=== PATIENT | female | born 1990 | race Caucasian/White ===

== ENCOUNTER 2018-10-11 11:50 | Inpatient (IN) | payer BC ==
[2018-10-11] MEDS ORDERED: Misoprostol TAB* 100 MCG PO ONE (12:24)
--- NOTE | 2018-10-11 12:34 | HP ---
General Information - Reason for Visit IUP at 40-10/29 here for postdates ripening/induction - General Information Maternal Age: 27 Grav: 1 Para: 0 SAB: 0 IEA: 0 Estimated Due Date: 10/05/18 Determined By: LMP Gestational Age in Weeks/Days: 40-67 Maternal Blood Type and Rh: O Positive - Results this Serology/RPR Result: Non-Reactive Rubella Result: Immune HBsAg Result: Negative HIV Result: Negative GBS Culture Result: Negative Past Medical History Delivery History: See Records Delivery History Comment: Primip Pertinent Past Medical History: Non-Contributory Pertinent Past Surgical History: None Pertinent Family History: See Records Family History Comment: MGM: ND. Takotsubo cardiomyopathy - Antepartal Records Antepartal Records: Reviewed, Uncomplicated Review of Systems Constitutional: Comfortable CV Complaint: No Respiratory: Shortness of Breath: No Gastrointestinal: No Nausea/Vomiting Genitourinary: No Dysuria, No Bleeding, No Leaking Fluid Musculoskeletal: No Complaint, No Epigastric Pain Neurological: No Headache, No Visual Changes Movement: Normal Exam Allergies/Adverse Reactions: Allergies MS Penicillins [Penicillins] Allergy (Verified 09/20/18 15:29) Rash BP 137/82 Repeat 125/80 HR 88 T 98.5 RR 20 SpO2 98% on RA - Measurements Height: 5 ft 4 in Weight: 211 lb Body Mass Index (BMI): 36.2 Pre- Weight: 175 lb - Exam Breast: Breast Exam Deferred CVA: No CVA Tenderness Extremities: No Edema Heart: Normal Rhythm/Heart Sounds HEENT: No Significant Findings Lungs: Clear Bilaterally Rectal: Rectal Exam Deferred Reflexes: DTR 2+ Thyroid: No Thyromegaly - Abdominal Exam Abdomen Exam: Non-Tender, Fundal Height Consistent with Dates - Ultrasound/Biophysical Profile Ultrasound Status: Not Done Targeted Exam Findings See L&D Outpatient Visit Provider Note for Findings: N/A Estimated Weight: EFW 8lbs by Alisia Cervical Exam: Fingertip Effacement: 50% Station: -2 Presenting Part: Vertex Membrane Status: Intact Sterile Speculum Exam: Not done Bleeding/Discharge: None EFM Findings - External Monitor Findings Baseline Heart Rate: 135 External Monitor Findings: Accelerations Present, No Pattern of Variable or Late Decelerations, Variability Moderate, Baseline Stable External Monitor Findings Comment: No evidence of metabolic acidemia Contractions: Irregular, Mild Assessment/Plan - Assessment IUP at 40-6/7 here for postdates ripening/induction No evidence of metabolic acidemia - Obstetrical Risk Factors Obstetrical Risk Factors: Post-Dates - Plan Plan: Cervical Ripening Plan Comment: Counseled for trial of Cervidil PV vs. Oral or vaginal Misoprostol. PARQ both. At this time pt consents to trial oral misoprostol. Will monitor per protocol and revisit in 4 hours, sooner PRN. Dr. Barragan aware of pt presence and condition. Agrees with plan - Date/Time of Admission Date of Admission: 10/11/18 Time of Admission: 11:51
--- NOTE | 2018-10-11 16:53 | PN ---
Progress Note - Progress Note Date of Service: 10/11/18 Note: S: Pt has been up walking. Reports some mild tightening but denies painful UCs. O: BP 122/80 HR 85 FHT 130bpm. Moderate variability. +Accels. No decels UCs q 2-3, mild VE: 1cm/50%/vtx -2 A: IUP at 40-6/7 here for cervical ripening/IOL No evidence of metabolic acidemia P: Enc pt to move around, have some dinner. Plan Cervidil placement around 1900 with PRN order for therapeutic rest overnight. Pt agrees
[2018-10-11] MEDS ORDERED: Dinoprostone* 10 MG VAG.SUPP VAGINAL ONE (18:45)
[2018-10-11] MEDS ORDERED: Nalbuphine* 10 MG/ML 1 ML VIAL IM ONE (19:15)
--- NOTE | 2018-10-11 19:15 | PN ---
Progress Note - Progress Note Date of Service: 10/11/18 Note: S: Pt able to eat some dinner. Open to Cervidil placement O: BP 139/82 HR 63 FHT 135bpm. Moderate variability. +Accels. No decels UCs q 4-7 min. Mild VE: Unchanged. Cervidil placed. Pt tolerated well A: IUP at 40-6/7 here for postdates ripening/IOL No evidence of metabolic acidemia P: Cervidil placed at 1905. Plan removal in 12 hours or sooner PRN onset active labor, tachysystole, intolerance. PRN order for therapeutic rest provided.
[2018-10-11] MEDS ORDERED: Promethazine INJ(RESTRICTED)* 25 MG/ML 1 ML VIAL IM ONE (19:16)
[2018-10-12 07:34] LABS: ABS Basophils 0.1 10^3/ul (0-0.2); ABS Lymphocytes 1.7 10^3/ul (1.0-4.8); ABS Monocytes 0.3 10^3/ul (0-0.8); ABS Neutrophils 11.8 10^3/ul (1.5-7.7); Hematocrit 38 % (35-47); Hemoglobin 12.4 g/dL (12.0-16.0); Lymphocyte % 12.3 %; Mean Corpuscular HGB Conc 33 g/dL (31-36); Mean Corpuscular Hemoglobin 29 pg (27-31); Mean Corpuscular Volume 88 fL (80-97); Mean Platelet Volume 8.7 fL (7.4-10.4); Platelet Count 300 10^3/uL (150-450); Red Blood Count 4.26 10^6 /uL (3.70-4.87); Red Cell Distribution Width 15 % (10.5-15); White Blood Count 13.8 10^3/uL (3.5-10.8)
[2018-10-12] MEDS ORDERED: OBEPIDURAL* 250 ML EPIDURAL ONE (08:23)
[2018-10-12] MEDS ORDERED: Phenylephrine 40 MCG/ML SYRINGE IV PUSH PRN ×2 (09:17)
[2018-10-12] MEDS ORDERED: Famotidine TAB* 20 MG PO PRN (09:17)
[2018-10-12] MEDS ORDERED: Lactated Ringers 1000 ML Bag* 1,000 ML IV ONE (09:17)
[2018-10-12] MEDS ORDERED: Sodium Citrate/Citric Acid* 15 ML UDC PO PRN (09:17)
[2018-10-12] MEDS ORDERED: OBEPIDURAL* 250 ML EPIDURAL SCH (10:00)
[2018-10-12] MEDS ORDERED: Lactated Ringers 1000 ML Bag* 1,000 ML IV SCH (10:00)
--- NOTE | 2018-10-12 12:45 | PN ---
Progress Note - Progress Note Date of Service: 10/12/18 Note: Late note for 0815: S: Patient uncomfortable, desires epidural O: VE 3/90/0 VSS, afebrile FHT 135, Cat 1 Ucs q 1.5-4, some coupling intact A: IUP in labor P: anesthesia paged. Follow up @ 1240: S: Patient very comfortable with epidural, had a nap, now desires VE O: VE 6/90/0 UCs q 2-4 min FHT 135, Cat 1 VSS, afebrile A: IUP @ 41 weeks gestation in active labor No sign metabolic acidemia P: Continue to encourage position changes in bed. Anticipate SVB
--- NOTE | 2018-10-12 16:14 | PN ---
Progress Note - Progress Note Date of Service: 10/12/18 Note: S: Patient still very comfortable but feeling more low pelvic pressure. O: VE 8cm/100/0 FHT 135 Cat 1 UCs q 2-4 min VSS, afebrile SROM @ 0946, continued leaking clear/blood tinged fluid A: Active labor P: Encouraged [id number] position changes with peanut ball. Anticipate SVB.
[2018-10-12] MEDS ORDERED: Bupivacaine 0.25% SDV PF* 10 ML VIAL INJ ONE (18:06)
--- NOTE | 2018-10-12 18:07 | PN ---
Progress Note - Progress Note Date of Service: 10/12/18 Note: S: Patient feeling more low pelvic pressure, especially with contractions. She also reports right hip pain. O: VE unchanged FHT Cat 1 UCs q 4-5 min VSS A: IUP in active labor P: Anesthesia paged for bolus. Continue position changes to facilitate baby's descent. PARQ discussion pitocin for increased frequency and strength of contractions; patients in agreement.
[2018-10-12] MEDS ORDERED: Oxytocin in LR* 20 UNITS/1,000 ML BAG IVPB SCH (19:00)
--- NOTE | 2018-10-12 23:31 | PN ---
Progress Note - Progress Note Date of Service: 10/12/18 Note: S: Patient still comfortable after re-bolus though does feel more low pelvic and abdominal pressure with contractions. O: VE ant lip/100/+1 FHT 130, +accels, no decels, mod nicole UCs Q 2-4 min Pit @ 18 VSS, afebrile A: IUP in active labor No evidence acidemia P: Continue position changes, anticipate SVB.
[2018-10-13] MEDS ORDERED: OBEPIDURAL* 250 ML EPIDURAL ONE (02:55)
[2018-10-13] MEDS ORDERED: OXYTOCIN* 10 UNITS/ML 1 ML VIAL ONE (03:25)
[2018-10-13] MEDS ORDERED: Ondansetron INJ* 2 MG/ML VIAL ONE (03:25)
[2018-10-13] MEDS ORDERED: Ketorolac INJ* 30 MG/ML 1 ML VIAL ONE (03:25)
[2018-10-13] MEDS ORDERED: Lidocaine 2% PF* 10 ML AMP ONE ×2 (03:25→04:21)
[2018-10-13] MEDS ORDERED: Gentamicin ADULT (*) 40 MG/ML VIAL (2 ML VIAL = 80 MG) IVPB ONE (03:50)
[2018-10-13] MEDS ORDERED: Clindamycin 900 MG/D5W BAG(*) 900 MG/50 ML BAG IVPB ONE ×2 (03:52→03:55)
--- NOTE | 2018-10-13 03:56 | PN ---
Progress Note - Progress Note Date of Service: 10/13/18 Note: 0215: Minimal change in station with continued pushing efforts, caput increasing and patient becoming tired. Consult with Dr Cesar by phone to consider whether assisted vaginal delivery possible. Plan to stop pitocin and re -bolus epidural as Dr Dawson called in for new bag of epidural med. Consider whether position changes and rest may allow patient to continue pushing. After approx 15 minutes rest, patient prefers to opt for CS; Dr Cesar advised and on his way to unit.
[2018-10-13] MEDS ORDERED: Gentamicin ADULT (*) 100 MG in NS 0.9% 100 ML* 100 ML IVPB ONE (04:30)
[2018-10-13] MEDS ORDERED: fentaNYL* 50 MCG/ML 2 ML VIAL (100 MCG VIAL) ONE (04:42)
[2018-10-13] MEDS ORDERED: Midazolam* 1 MG/ML 2 ML VIAL (2 MG) ONE (04:54)
[2018-10-13] MEDS ORDERED: Morphine PF AMP (0.5MG/ML)* 5 MG/10 ML AMP ONE (05:08)
[2018-10-13] MEDS ORDERED: Acetaminophen IV 1GM/100ML * 1,000 MG/100 ML VIAL IVPB ONE (05:18)
[2018-10-13] MEDS ORDERED: oxyCODONE TAB* 5 MG TAB PO PRN (05:18)
[2018-10-13] MEDS ORDERED: DiMENhydriNATE IV* 50 MG/ML VIAL IV PUSH PRN (05:18)
[2018-10-13] MEDS ORDERED: HYDROmorphone INJ1* 1 MG/ML SYRINGE IV PRN (05:18)
[2018-10-13] MEDS ORDERED: Naloxone* 0.4 MG/ML 1 ML VIAL IV PRN ×2 (05:18→05:19)
[2018-10-13] MEDS ORDERED: oxyCODONE/Acetamin 5/325 MG* TAB PO PRN ×2 (05:19→21:13)
[2018-10-13] MEDS ORDERED: Nalbuphine* 10 MG/ML 1 ML VIAL IV PRN (05:19)
[2018-10-13] MEDS ORDERED: Ondansetron INJ* 2 MG/ML VIAL IV PRN (05:19)
[2018-10-13] MEDS ORDERED: Propofol* 10 MG/ML 20 ML BTL ONE (05:30)
[2018-10-13] MEDS ORDERED: Glycerin ADULT SUPP PR PRN (05:36)
[2018-10-13] MEDS ORDERED: Witch Hazel PAD* JAR TOPICAL PRN (05:36)
[2018-10-13] MEDS ORDERED: Dibucaine 1% 28.35 GM TUBE PR PRN (05:36)
[2018-10-13] MEDS ORDERED: Acetaminophen TAB* 325 MG PO PRN (05:36)
[2018-10-13] MEDS ORDERED: Lactated Ringers 1000 ML Bag* 1,000 ML IV SCH (06:00)
[2018-10-13] MEDS ORDERED: HYDROmorphone INJ* 0.5 MG/0.5 ML SYRINGE ONE (06:26)
[2018-10-13] MEDS ORDERED: HYDROmorphone INJ* 0.5 MG/0.5 ML SYRINGE IV PRN (06:29)
[2018-10-13] MEDS: Simethicone TAB* 80 MG TAB.CHEW PO SCH ×4 (09:24→21:24)
[2018-10-13] MEDS: Docusate CAP* 100 MG PO SCH ×3 (10:21→21:24)
[2018-10-13] MEDS: Ketorolac INJ* 30 MG/ML 1 ML VIAL IV SCH ×2 (11:11→17:36)
[2018-10-13] MEDS ORDERED: Zolpidem TAB* 5 MG PO PRN (21:13)
[2018-10-14] MEDS: Ketorolac INJ* 30 MG/ML 1 ML VIAL IV SCH ×2 (00:41→08:14)
[2018-10-14 08:11] LABS: Hematocrit 28 % (35-47); Hemoglobin 9.2 g/dL (12.0-16.0); Mean Corpuscular HGB Conc 33 g/dL (31-36); Mean Corpuscular Hemoglobin 29 pg (27-31); Mean Corpuscular Volume 89 fL (80-97); Mean Platelet Volume 8.4 fL (7.4-10.4); Platelet Count 242 10^3/uL (150-450); Red Blood Count 3.17 10^6 /uL (3.70-4.87); Red Cell Distribution Width 16 % (10.5-15); White Blood Count 14.8 10^3/uL (3.5-10.8)
[2018-10-14] MEDS: Simethicone TAB* 80 MG TAB.CHEW PO SCH ×4 (08:14→19:47)
[2018-10-14] MEDS: Docusate CAP* 100 MG PO SCH ×3 (08:14→19:47)
[2018-10-14 09:03] LABS: ABS Neutrophils 9.8 10^3/ul (1.5-7.7)
[2018-10-14 09:04] LABS: ABS Eosinophils 0.3 10^3/ul (0-0.6)
[2018-10-14] MEDS: Ferrous Gluconate TAB* 324 MG TAB PO SCH ×2 (09:23→19:47)
--- NOTE | 2018-10-14 12:04 | OP ---
OPERATIVE REPORT: DATE OF OPERATION: 10/13/18 DATE OF : 89 SURGEON: Campos Cesar MD CELL RELINER: Black Giraldo CNM ANESTHESIA: Epidural. PRE-OP DIAGNOSIS: at term with arrest of descent in a second stage of labor. POST-OP DIAGNOSIS: at term with arrest of descent in a second stage of labor. OPERATIVE PROCEDURE: Primary low transverse section. ESTIMATED BLOOD LOSS: 700 cc. SPECIMENS TO PATHOLOGY: Cord blood. FLUIDS: She received 1600 cc of IV crystalloid fluid. URINE OUTPUT: 200 cc of clear urine. FINDINGS: Delivery of a male infant with weight of 8 pounds 12 ounces with Apgars of 9 and 9. The u terus, adnexa, bowel, bladder, fallopian tubes, and ovaries were all within normal limits. The place nta was grossly intact with a 3-vessel cord noted and there were no complications. DESCRIPTION OF PROCEDURE: The patient was taken to the operating room, where she was identified. [facility] was placed on the operating table where an epidural anesthetic was obtained without difficulty. e was then placed in the supine position with a leftward tilt, prepped and draped in a normal sterile fashion. A Pfannenstiel skin incision was then made with a knife and carried through to the underly ing layer of fascia. The fascia was then nicked in the midline and extended laterally with curved Ma yo scissors. The fascia was then grasped superiorly and inferiorly with Jocelynn clamps and dissected off sharply from the rectus muscle. The rectus muscle was in the midline bluntly. The per itoneum was identified, grasped with pickups, and entered sharply with Metzenbaum scissors and extend ed superiorly and inferiorly sharply. A bladder blade was inserted into the patient's abdomen and bl adder flap was created using Metzenbaum scissors, over which the bladder blade was then reinserted. A low transverse uterine incision was made with a knife, extended laterally with bandage scissors. T he 's head was then grasped and delivered atraumatically using vacuum assistance. The rest of the infant's body was then delivered. The cord was clamped and cut. The was handed off to [facility] tub attendant. Cord bloods were obtained. The placenta was removed manually. The uterus was t hen exteriorized and cleared of all clot and debris using moist laparotomy sponges. The uterine inci tierney was then closed using 0 Polysorb suture in a running locked fashion with a second imbricating la juan a of 0 Polysorb suture with good hemostasis noted. At this point, the uterus was returned to the p atient's abdomen. The gutters were then cleared of all clot and debris using moist laparotomy sponge s. All the sponges and instruments were removed from the patient's abdomen. The peritoneum was then closed using 3-0 Polysorb suture in a running fashion. The fascia was closed using 0 Polysorb sutur e in a running fashion and the skin was closed with 4-0 Monocryl subcuticular stitch. The patient to lerated the procedure well. Sponge, lap and needle counts were correct x2. She was then transferred to the recovery room area in stable condition. [id number]/[facility] #: [id number]
[2018-10-14] MEDS: Ibuprofen TAB* 600 MG PO PRN ×2 (14:10→19:47)
[2018-10-14] MEDS: oxyCODONE/Acetamin 5/325 MG* TAB PO PRN (21:46)
[2018-10-15] MEDS: Ibuprofen TAB* 600 MG PO PRN ×3 (02:26→14:00)
[2018-10-15] MEDS: oxyCODONE/Acetamin 5/325 MG* TAB PO PRN ×2 (05:06→14:01)
[2018-10-15] MEDS: Ferrous Gluconate TAB* 324 MG TAB PO SCH (08:21)
[2018-10-15] MEDS: Docusate CAP* 100 MG PO SCH ×2 (08:21→14:00)
[2018-10-15] MEDS: Simethicone TAB* 80 MG TAB.CHEW PO SCH ×2 (08:22→14:00)
[2018-10-15 09:44] VITALS: BP 130/79
--- NOTE | 2018-10-15 11:15 | PTEDU ---
Patient Name: VARGHESE ORTIZ VARGHESE ORTIZ selected video: Never Ever Shake a Baby to view on 10/15/2018 at 11:14:17 AM from [facility] [id number]
--- NOTE | 2018-10-15 11:24 | PTEDU ---
Patient Name: VARGHESE ORTIZ VARGHESE ORTIZ selected video: BBOB: Bonding Through Massage to view on 10/15/2018 at 11:23:49 AM [id number]
== END 2018-10-15 15:17 | disposition home or self-care (01) | DRG 540 ==
LOC: MCHOBOUT 11:50 → MCHOB 11:51
PROVIDERS: ADMIT Midwife; ATTEND Obstetrics & Gynecology
PROC: 10D00Z1 Extraction of Products of Conception, Low, Open Approach (ICD-10-PCS; principal; 2018-10-11)
PROC: 3E0P7VZ Introduction of Hormone into Female Reproductive, Via Natural or Artificial Opening (ICD-10-PCS; 2018-10-11)
PROC: 10E0XZZ Delivery of Products of Conception, External Approach (ICD-10-PCS; 2018-10-11)
PROC: 4A1HXCZ Monitoring of Products of Conception, Cardiac Rate, External Approach (ICD-10-PCS; 2018-10-11)
PROC: 3E033VJ Introduction of Other Hormone into Peripheral Vein, Percutaneous Approach (ICD-10-PCS; 2018-10-11)
DX: O48.0 Post-term pregnancy (principal); Z3A.40 40 weeks gestation of pregnancy; Z37.0 Single live birth; Z88.0 Allergy status to penicillin; O62.1 Secondary uterine inertia; O90.81 Anemia of the puerperium
CPT/HCPCS: 36415; 85025; 86850; 86900; 86901; A9270-GY; J1170; J1580; J1885; J2001; J2250; J2300; J2405; J2550; J2590; J2704; J3010; J3490; S0191

== ENCOUNTER 2019-05-18 09:21 | Emergency (ER) | payer BC ==
[2019-05-18 09:32] VITALS: BP 132/83
[2019-05-18] MEDS ORDERED: Fluorescein Sodium TOPICAL* 1 MG TEST STRIP OPHTHALMIC ONE (09:33)
[2019-05-18] MEDS ORDERED: Polymyx/Trimethoprim OPTH* 10 ML BTL RIGHT EYE ONE (09:41)
--- NOTE | 2019-05-18 09:45 | UC ---
Eye Complaint HPI - HPI Summary HPI Summary: Patient is a 28-year-old female that injured her right eye yesterday when she inadvertently bumped into [facility] bracket. She has some mild right eye sensitivity to light as well as mild pain and redness. She has never injured her right eye before. - History of Current Complaint Chief Complaint: UCEye Stated Complaint: EYE IRRITATION Hx Obtained From: Patient Hx Last Menstrual Period: currently Onset/Duration: Sudden Onset, Lasting Hours Timing: Constant Severity Initially: Mild Severity Currently: Mild Pain Intensity: 3 Pain Scale Used: 0-10 Numeric Location of Injury: Conjunctiva Character: Foreign Body Sensation Aggravating Factor(s): Light Alleviating Factor(s): Darkness Associated Signs And Symptoms: Positive: Drainage (Clear) Related History: Trauma Eyes: 1 - fluorescein uptake - Allergies/Home Medications Allergies/Adverse Reactions: Allergies Allergy/AdvReac Type Severity Reaction Status Date / Time Penicillins Allergy Unknown Rash Verified 05/18/19 09:32 PMH/Surg Hx/FS Hx/Imm Hx Previously Healthy: Yes - Surgical History Surgical History: Yes Surgery Procedure, Year, and Place: - Family History Known Family History: Positive: Non-Contributory - Social History Alcohol Use: Weekly Substance Use Type: None Smoking Status (MU): Never Smoked Tobacco - Immunization History Most Recent Influenza Vaccination: 2018 Most Recent Pneumonia Vaccination: na Review of Systems All Other Systems Reviewed And Are Negative: Yes Constitutional: Positive: Negative Eyes: Positive: Negative, Eye Redness, Photophobia ENT: Positive: Negative Respiratory: Positive: Negative Cardiovascular: Positive: Negative Gastrointestinal: Positive: Negative Genitourinary: Positive: Negative Motor: Positive: Negative Neurovascular: Positive: Negative Musculoskeletal: Positive: Negative Neurological: Positive: Negative Psychological: Positive: Negative Physical Exam Triage Information Reviewed: Yes Appearance: Well-Appearing, No Pain Distress, Well-Nourished Vital Signs: Initial Vital Signs Temp 99 F 05/18/19 09:28 Pulse 89 05/18/19 09:28 Resp 15 05/18/19 09:28 BP 132/83 05/18/19 09:28 Pulse Ox 97 05/18/19 09:28 Vital Signs Reviewed: Yes Eyes: Positive: Conjunctiva Inflamed, Other: - eomi/perrl, no hymphema, see image ENT: Positive: Hearing grossly normal. Negative: Nasal congestion, Nasal drainage, Trismus, Muffled voice, Hoarse voice Dental Exam: Normal Neck: Positive: Supple Respiratory: Positive: Lungs clear, Normal breath sounds, No respiratory distress Cardiovascular: Positive: RRR, No Murmur Musculoskeletal: Positive: ROM Intact, No Edema Neurological: Positive: Muscle Tone Normal Psychological Exam: Normal Skin Exam: Normal Eye Complaint Course/Dx - Differential Dx/Diagnosis Provider Diagnosis: Right corneal abrasion, Elevated BP without diagnosis of hypertension Discharge ED - Sign-Out/Discharge Documenting (check all that apply): Patient Departure All imaging exams completed and their final reports reviewed: No Studies - Discharge Plan Condition: Stable Disposition: HOME Patient Education Materials: Corneal Abrasion (ED) Referrals: Coy Mcclure MD [Medical Doctor] - Ahsan Olivares MD [Medical Doctor] - Additional Instructions: I suggest you get you eye rechecked in 1 -2 days unless completely back to normal - Billing Disposition and Condition Condition: STABLE Disposition: Home
== END 2019-05-18 09:55 | disposition home or self-care (01) ==
LOC: UCEAST 09:21
DX: S05.01XA Injury of conjunctiva and corneal abrasion without foreign body, right eye, initial encounter (principal); R03.0 Elevated blood-pressure reading, without diagnosis of hypertension; Z88.0 Allergy status to penicillin; W22.8XXA Striking against or struck by other objects, initial encounter; Y92.9 Unspecified place or not applicable
CPT/HCPCS: 99212; A9270-GY; G0463

== ENCOUNTER 2020-06-22 16:27 | Inpatient (IN) ==
[2020-06-22] MEDS ORDERED: Buffered Lidocaine 1% SYRIN 1 ml INTRADERM ONE (16:58)
[2020-06-22] MEDS ORDERED: Lactated Ringers 1000 ml BAG 1,000 ML IV ONE ×2 (16:58→22:35)
[2020-06-22] MEDS ORDERED: Lactated Ringers 1000 ml BAG 1,000 ML IV SCH ×2 (17:00→23:00)
[2020-06-22 17:47] LABS: ABS Basophils 0.1 10^3/ul (0-0.2); ABS Lymphocytes 1.9 10^3/ul (1.0-4.8); ABS Monocytes 0.5 10^3/ul (0-0.8); ABS Neutrophils 9.2 10^3/ul (1.5-7.7); Eosinophil % 0.1 %; Hematocrit 37 % (35-47); Hemoglobin 12.2 g/dL (12.0-16.0); Lymphocyte % 16.3 %; Mean Corpuscular HGB Conc 33 g/dL (31-36); Mean Corpuscular Hemoglobin 29 pg (27-31); Mean Corpuscular Volume 87 fL (80-97); Mean Platelet Volume 9.4 fL (7.4-10.4); Platelet Count 234 10^3/uL (150-450); Red Blood Count 4.28 10^6 /uL (3.70-4.87); Red Cell Distribution Width 14 % (10-15); White Blood Count 11.7 10^3/uL (3.5-10.8)
[2020-06-22 18:03] LABS: Urine Benzodiazepine Screen None Detected (None Detect); Urine Cannabinoids Screen None Detected (None Detect); Urine Opiates Screen None Detected (None Detect)
[2020-06-22] MEDS ORDERED: OBEPIDURAL 250 ML EPIDURAL ONE (21:34)
[2020-06-22] MEDS ORDERED: Phenylephrine 40 mcg/mL 10mL (400mcg) SYRINGE IV PUSH PRN ×2 (22:35)
[2020-06-22] MEDS ORDERED: Sodium Citrate/Citric Acid LIQ 15 ML UDC PO PRN (22:35)
[2020-06-22] MEDS ORDERED: EPHEDrine (Pressors) 50 MG/ML VIAL IV PUSH PRN ×2 (22:35)
[2020-06-22] MEDS ORDERED: OBEPIDURAL 250 ML EPIDURAL SCH (23:00)
[2020-06-22] MEDS ORDERED: Oxytocin in LR 20 UNITS/1,000 ML BAG IVPB SCH (23:45)
[2020-06-23] MEDS ORDERED: Ondansetron 4 mg VIAL 2 MG/ML 2 ml VIAL ONE ×2 (01:41→05:43)
[2020-06-23] MEDS ORDERED: Calcium Carb (TUMS) 500 mg CHEW TAB ONE (01:41)
[2020-06-23] MEDS ORDERED: ceFOXitin 2 GM IVPREMIX 2 GM/50 ML BAG ONE (05:19)
[2020-06-23] MEDS ORDERED: Chloroprocaine 3% 20 ml VIAL ONE (05:38)
[2020-06-23] MEDS ORDERED: fentaNYL 100 mcg/2 ml 50 MCG/ML VIAL ONE (05:38)
[2020-06-23] MEDS ORDERED: Dexamethasone IV 4 MG/ML VIAL 1 ml VIAL ONE (05:43)
[2020-06-23] MEDS ORDERED: Oxytocin 10 UNITS/ML 1 ML VIAL ONE (05:43)
[2020-06-23] MEDS ORDERED: Lidocaine 2% w/ EPI 1:200,000 MPF 20 ML SDV VIAL ONE (06:14)
[2020-06-23] MEDS ORDERED: Morphine PF AMP (0.5MG/ML) 5 MG/10 ML AMP ONE (06:33)
[2020-06-23] MEDS ORDERED: fentaNYL 100 mcg/2 ml 50 MCG/ML VIAL IV PRN (06:36)
[2020-06-23] MEDS ORDERED: DiMENhydriNATE IV 50 mg/ml 1 ml VIAL IV PUSH PRN ×2 (06:36→06:38)
[2020-06-23] MEDS ORDERED: Naloxone 0.4 mg VIAL 0.4 mg/ml 1 ml VIAL IV PRN ×2 (06:36→06:38)
[2020-06-23] MEDS ORDERED: Acetaminophen IV 1 GM/100ML 1,000 MG/100 ML VIAL IVPB ONE (06:36)
[2020-06-23] MEDS ORDERED: Ondansetron 4 mg VIAL 2 MG/ML 2 ml VIAL IV PRN (06:38)
[2020-06-23] MEDS ORDERED: Metoclopramide 5 MG/ML VIAL (10 mg) ONE (06:50)
[2020-06-23] MEDS ORDERED: Witch Hazel PAD JAR TOPICAL PRN (07:27)
[2020-06-23] MEDS ORDERED: Dibucaine 1% OINT 28.35 GM TUBE PR PRN (07:27)
[2020-06-23] MEDS ORDERED: Lactated Ringers 1000 ml BAG 1,000 ML IV SCH (08:00)
[2020-06-24 08:26] LABS: ABS Monocytes 0.7 10^3/ul (0-0.8); ABS Neutrophils 8.1 10^3/ul (1.5-7.7); Eosinophil % 0.2 %; Hematocrit 27 % (35-47); Hemoglobin 8.9 g/dL (12.0-16.0); Lymphocyte % 18.2 %; Mean Corpuscular HGB Conc 33 g/dL (31-36); Mean Corpuscular Hemoglobin 29 pg (27-31); Mean Corpuscular Volume 88 fL (80-97); Mean Platelet Volume 9.1 fL (7.4-10.4); Platelet Count 178 10^3/uL (150-450); Red Blood Count 3.06 10^6 /uL (3.70-4.87); Red Cell Distribution Width 14 % (10-15); White Blood Count 10.9 10^3/uL (3.5-10.8)
[2020-06-25 08:00] VITALS: BP 107/67
[2020-06-26] MEDS ORDERED: Scopolamine PATCH Remove NOTE PATCH OFF ONE (08:00)
== END 2020-06-25 11:02 | disposition home or self-care (01) | DRG 540 ==
LOC: MCHOBOUT 16:27 → MCHOB 16:48
PROVIDERS: ADMIT Obstetrics & Gynecology; ATTEND Obstetrics & Gynecology